=== PATIENT | female | born 1950 | race Caucasian/White ===

== ENCOUNTER 2025-04-15 09:02 | Inpatient (IN) | payer MEDICARE, OTHER ==
[~2025-04-15] VITALS: Ht 149.9 cm; Wt 40.8 kg
[2025-04-15] MEDS ORDERED: ACETAMINOPHEN ES 500 MG TABLET ONE (09:26)
[2025-04-15] MEDS: IV NS 0.9% 1,000 ML BAG IV ONE (09:29)
[2025-04-15] MEDS: ACETAMINOPHEN ES 500 MG TABLET PO ONE (09:30)
[2025-04-15 10:03] LABS: PLATELET COUNT (AUTO) 224 K/uL (150-450); RED BLOOD CELL COUNT(AUTO) 4.94 MIL/uL (4.0-5.2); RED CELL DISTRIBUTION WIDTH 14.7 % (11.5-15.0); WHITE BLOOD COUNT (AUTO) 10.8 K/uL (4.3-11.0)
[2025-04-15 10:04] LABS: CALCIUM, SERUM 9.5 mg/dL (8.5-10.1); CREATININE 0.6 mg/dL (0.6-1.3); SODIUM SERUM 140 mmol/L (136-145); UREA NITROGEN, BLOOD 22 mg/dL (7-18)
[2025-04-15 10:09] LABS: CREATINE KINASE, TOTAL 728 U/L (26-192)
[2025-04-15 10:12] LABS: LACTIC ACID 1.5 mmol/L (0.4-2.0)
[2025-04-15 10:40] LABS: APPEARANCE,URINE CLEAR (CLEAR); BLOOD, URINE 2+ Ery/uL (NEGATIVE); LEUKOCYTE ESTERASE ,URINE NEGATIVE (NEGATIVE); NITRITE, URINE NEGATIVE (NEGATIVE); UGLUCOSE NEGATIVE (NEGATIVE)
[2025-04-15 10:44] LABS: ADD URINE CULTURE NO; SQUAMOUS EPITHELIAL CELL,UR Few /HPF (None Seen)
[2025-04-15] MEDS ORDERED: HYDR2TAB7 PO (10:48)
[2025-04-15] MEDS ORDERED: CYAN100T44 PO (10:48)
[2025-04-15] MEDS ORDERED: ESCI5TAB PO (10:48)
[2025-04-15] MEDS ORDERED: OLAN5TAB3 PO (10:48)
[2025-04-15] MEDS ORDERED: MULT-594 PO (10:48)
[2025-04-15] MEDS ORDERED: SENN-287 PO (10:48)
[2025-04-15] MEDS ORDERED: OSIM80TA PO (10:48)
[2025-04-15] MEDS ORDERED: FENT1PAT2 TD (10:48)
[2025-04-15] MEDS ORDERED: ASCO500T20 PO (10:48)
[2025-04-15] MEDS ORDERED: CETI-90 PO (10:48)
[2025-04-15] MEDS ORDERED: FERR-68 PO (10:48)
[2025-04-15] MEDS ORDERED: APIX2.5T PO (10:48)
[2025-04-15] MEDS ORDERED: hydrALAZINE HCL IV 20 MG VIAL IV PRN (11:30)
[2025-04-15] MEDS ORDERED: POTASSIUM CHLORIDE 20 MEQ TAB.PRT.SR PO ONE (15:00)
[2025-04-15 16:00] VITALS: BP 126/72; TEMP 97.7; O2SAT 99
[2025-04-15] MEDS: POTASSIUM CHLORIDE 20 MEQ POWDER PACKET PO ONE (16:44)
[2025-04-15 20:00] VITALS: BP 116/50; TEMP 98.6; O2SAT 96
[2025-04-15] MEDS ORDERED: NALOXONE HCL 0.4 MG/ML AMPUL IV PRN (20:30)
[2025-04-15 20:52] VITALS: BP 116/50; TEMP 98.6; O2SAT 96
[2025-04-15] MEDS: SENNOSIDES/DOCUSATE SODIUM 1 TAB TABLET PO SCH (21:07)
[2025-04-15] MEDS: OLANZAPINE 5 MG TABLET PO SCH (21:07)
[2025-04-15] MEDS: ESCITALOPRAM OXALATE (10 MG) 10 MG TABLET PO SCH (21:07)
[2025-04-16] VITALS (7 sets, daily range): BP systolic 109–148; BP diastolic 47–72; TEMP 97.5–98.6; O2SAT 98–100
[2025-04-16 08:16] LABS: PLATELET COUNT (AUTO) 202 K/uL (150-450); RED BLOOD CELL COUNT(AUTO) 4.91 MIL/uL (4.0-5.2); RED CELL DISTRIBUTION WIDTH 14.6 % (11.5-15.0); WHITE BLOOD COUNT (AUTO) 9.3 K/uL (4.3-11.0)
[2025-04-16 08:34] LABS: CALCIUM, SERUM 9.1 mg/dL (8.5-10.1); CREATININE 0.7 mg/dL (0.6-1.3); SODIUM SERUM 142.0 mmol/L (136-145); UREA NITROGEN, BLOOD 22.0 mg/dL (7-18)
[2025-04-16 08:38] LABS: LDL 131.0 mg/dL (0-99)
[2025-04-16] MEDS: FENTANYL TD PATCH (12 MCG/HR) 12 MCG/HR PATCH.TD72 TD SCH (09:06)
[2025-04-16] MEDS: PANTOPRAZOLE 40 MG VIAL IV SCH (09:07)
[2025-04-16] MEDS: MULTIVITAMINS,THERAGRAN 1 UDTAB TABLET PO SCH (09:07)
[2025-04-16] MEDS: APIXABAN 2.5 MG TABLET PO SCH (09:10)
[2025-04-16] MEDS: ATORVASTATIN 40 MG TABLET PO SCH (09:11)
[2025-04-16 09:57] LABS: ERYTHROCYTE SEDIMENTATION RATE 4 MM/HR (0-30)
[2025-04-16] MEDS: CEFTRIAXONE 1 G in IV D5W 50 ML IV SCH (10:53)
[2025-04-16 11:55] LABS: APPEARANCE,URINE CLEAR (CLEAR); BLOOD, URINE TRACE-INTA Ery/uL (NEGATIVE); LEUKOCYTE ESTERASE ,URINE NEGATIVE (NEGATIVE); NITRITE, URINE NEGATIVE (NEGATIVE); UGLUCOSE NEGATIVE (NEGATIVE)
[2025-04-16 12:02] LABS: ADD URINE CULTURE NO; AMPHETAMINE, URINE NEGATIVE (NEGATIVE); BARBITURATE, URINE NEGATIVE (NEGATIVE); BENZODIAZEPINE, URINE NEGATIVE (NEGATIVE); COCCAINE, URINE NEGATIVE (NEGATIVE); OPIATE, URINE NEGATIVE (NEGATIVE); SQUAMOUS EPITHELIAL CELL,UR 0-2 /HPF (None Seen)
[2025-04-16 12:03] LABS: HYALINE CASTS, URINE Few /LPF (None Seen)
[2025-04-16 12:04] LABS: CANNABINOID, URINE POSITIVE (NEGATIVE)
[2025-04-16] MEDS: TRAZODONE 50 MG TABLET PO SCH (21:38)
[2025-04-17] VITALS: BP 132/51; TEMP 98.1; O2SAT 98
[2025-04-17 05:00] VITALS: BP 117/61; TEMP 97.8; O2SAT 98
[2025-04-17 08:00] VITALS: BP 119/56; TEMP 97.3; O2SAT 96
[2025-04-17] MEDS: PANTOPRAZOLE 40 MG TABLET.DR PO SCH (08:52)
[2025-04-17 16:00] VITALS: BP 160/65; TEMP 97.7; O2SAT 99
[2025-04-17 20:00] VITALS: BP 141/71; TEMP 98.2; O2SAT 95
[2025-04-17] MEDS ORDERED: GADOTERATE MEGLUMINE 5 MMOL/10 ML VIAL IV ONE (20:08)
[2025-04-18 07:30] VITALS: BP 120/40; TEMP 97.9; O2SAT 96
[2025-04-18 16:00] VITALS: BP 119/56; TEMP 97.2; O2SAT 99
[2025-04-18 20:00] VITALS: BP 136/64; TEMP 97.5; O2SAT 97
[2025-04-19 07:00] VITALS: BP 146/62; TEMP 97.7; O2SAT 96
[2025-04-19] MEDS ORDERED: TRAZ-252 PO (15:47)
[2025-04-19] MEDS ORDERED: ATOR40TA PO (15:47)
[2025-04-19 16:00] VITALS: BP 134/69; TEMP 97.7; O2SAT 98
[2025-04-19] MEDS: HYDROMORPHONE HCL 2 MG TABLET PO PRN (19:22)
== END 2025-04-19 19:45 | disposition short-term general hospital (02) | DRG 64 ==
LOC: ER 09:04 → TELE 10:55 → MED 04-17 06:30
PROVIDERS: ADMIT Internal Medicine; ATTEND Internal Medicine
DX: I63.89 Other cerebral infarction (principal); I21.A1 Myocardial infarction type 2; C79.51 Secondary malignant neoplasm of bone; M48.52XA Collapsed vertebra, not elsewhere classified, cervical region, initial encounter for fracture; D69.6 Thrombocytopenia, unspecified; E86.0 Dehydration; I48.91 Unspecified atrial fibrillation; M48.02 Spinal stenosis, cervical region; M50.31 Other cervical disc degeneration, high cervical region; R79.1 Abnormal coagulation profile; Z79.01 Long term (current) use of anticoagulants; Z85.118 Personal history of other malignant neoplasm of bronchus and lung; Z85.3 Personal history of malignant neoplasm of breast; R29.701 NIHSS score 1; Z91.81 History of falling; R53.1 Weakness; Z92.21 Personal history of antineoplastic chemotherapy; Z92.3 Personal history of irradiation
CPT/HCPCS: 36415; 70450-TC; 70544-TC; 70551-TC; 71045-TC; 72125-TC; 72156-TC; 80048-TC; 80061-TC; 81001; 82550-TC; 82553; 82962-TC; 83605-TC; 84443-TC; 84484-TC; 85025-TC; 85652-TC; 87040-TC; 87086-TC; 92526; 92611; 93307-TC; 93880-TC; 97110-TC; 97116-TC; 97530-TC; 97535-TC; A4223; A6253; A9575; G0378; J0696; J2470; J7030; J7050; J7060